=== PATIENT | female | born 1960 | race Caucasian/White ===

== ENCOUNTER 2020-01-16 12:14 | Outpatient (REF) | payer BC, SELFPAY ==
[2020-01-16 21:21] LABS: Calculated LDL 95 mg/dL (<100); Cholesterol 160 mg/dL (<200); HDL Cholesterol 55 mg/dL (40-60); Triglyceride 54 mg/dL (<150)
[2020-01-16 21:23] LABS: Hemoglobin A1C 5.5 % (3.8-5.6)
[2020-01-17 13:22] LABS: ALT 29 U/L (14-59); AST 25 U/L (15-37); Alkaline Phosphatase 105 U/L (46-116); Anion Gap 7.4 mmol/L (3-11); BUN 15 mg/dL (7-18); Bilirubin, Total 0.6 mg/dL (0.2-1.0); CO2 30.6 mmol/L (21.0-32.0); CREATININE 0.77 mg/dL (0.55-1.02); Calcium 8.7 mg/dL (8.5-10.1); Chloride 104 mmol/L (98-107); Glucose 101 mg/dL (74-106); Potassium 3.7 mmol/L (3.5-5.1); Sodium 142 mmol/L (136-145); Total Protein 7.3 g/dL (6.4-8.2)
[2020-01-20 13:18] LABS: Lamotrigine 10.2 mcg/mL (2.5 - 15.0)
== END 2020-01-16 12:34 ==
LOC: NCHCN 12:14
PROVIDERS: PCP Registered Nurse; Visit Provider Registered Nurse
DX: R73.9 Hyperglycemia, unspecified (principal); R56.9 Unspecified convulsions; Z95.2 Presence of prosthetic heart valve; Z00.00 Encounter for general adult medical examination without abnormal findings
CPT/HCPCS: 80053; 80061; 80175; 83036

== ENCOUNTER 2020-03-30 13:39 | Outpatient (REF) | payer BC, SELFPAY | END 2020-03-30 13:59 | LOC: NCHCN 13:39 | PROVIDERS: PCP Registered Nurse; Visit Provider Nurse Practitioner Family | DX: R31.9 Hematuria, unspecified (principal) | CPT/HCPCS: 87077; 87086; 87186 ==

== ENCOUNTER 2021-03-02 11:24 | Outpatient (REF) | payer BC, SELFPAY ==
[2021-03-02 14:32] LABS: BUN 16 mg/dL (7-18); CREATININE 0.4 mg/dL (0.55-1.02); Calcium 8.8 mg/dL (8.5-10.1); Chloride 105 mmol/L (98-107); Glucose 92 mg/dL (74-106); Potassium 3.7 mmol/L (3.5-5.1); Sodium 142 mmol/L (136-145)
== END 2021-03-02 11:25 | disposition home or self-care (01) ==
LOC: NCHCN 11:24
PROVIDERS: PCP Registered Nurse; Visit Provider Registered Nurse
DX: I50.30 Unspecified diastolic (congestive) heart failure (principal)
CPT/HCPCS: 80048

== ENCOUNTER 2021-04-22 13:09 | Outpatient (REF) | payer MEDICAID, SELFPAY ==
[2021-04-22 21:40] LABS: Anion Gap 6.7 mmol/L (3-11); BUN 12 mg/dL (7-18); CO2 32.3 mmol/L (21.0-32.0); CREATININE 0.8 mg/dL (0.55-1.02); Calcium 8.6 mg/dL (8.5-10.1); Chloride 104 mmol/L (98-107); Glucose 133 mg/dL (74-106); Potassium 3.4 mmol/L (3.5-5.1); Sodium 143 mmol/L (136-145)
== END 2021-04-22 13:10 | disposition home or self-care (01) ==
LOC: NCHCN 13:09
PROVIDERS: PCP Registered Nurse; Visit Provider Registered Nurse
DX: E87.6 Hypokalemia (principal)
CPT/HCPCS: 80048

== ENCOUNTER 2021-05-10 08:51 | Outpatient (REF) | payer MEDICAID, SELFPAY ==
--- OUTSIDE RECORDS SUMMARY | 2021-05-10 09:06 | XMS_ITS | CCD ---
:1960 Author Care Team Providers Name Role Phone ANTOINE Attending Physician Unavailable Vital Signs Unknown or Not Available. Allergies Allergy Code Allergy Type Reaction Status LATEX [id number] Allergy to substance Active Procedures Unknown or Not Available. History of Immunizations Unknown or Not Available. Problems Problem Code Start Date Resolved Date Status Decompensated COPD with [id number] Acti ve (acute) exacerbation Pneumonia 538854817 Active Acute respiratory 41130126 Active failure with hypoxia Acute and chronic [id number] Active respiratory failure with hypercapnia Results Unknown or Not Available. Active Medications Medication Code Dose Units Frequency Route Modification Start Date/Time Aspirin 81MG 782892 81 MILLIGRAMS DAILY ORAL 02/20/20 21 Oral Tablet, 16:59 Enteric Coated Prescription Detail TAKE 81 MILLIGRAMS ORAL RADHA Y lamoTRIgine 300748 200 MILLIGRAMS TWICE A ORAL 1 100MG Oral DAY 16:59 Tablet Prescription Detail TAKE 200 MILLIGRAMS ORAL TWI CE A DAY LORazepam 3149339 0.5 MILLIGRAMS NEEDED IVP 1 2MG/1ML EVERY 4 16:59 Injection HOURS Solution Prescription Detail 0.5 MILLIGRAMS IVP NEEDE D EVERY 4 HOURS Ondansetron 811764 4 MILLIGRAMS NEEDED IVP 021 2MG/1ML EVERY 4 16:59 Injection HOURS Solution Prescription Detail 4 MILLIGRAMS IVP NEEDED EVERY 4 HOURS SOLU-Medrol 40mg 246610 40 MILLIGRAMS EVERY 6 IVP 01/28 Vial 40MG/1ML HOURS 16:59 Injection Solution Prescription Detail 40 MILLIGRAMS IVP EVERY 6 H OURS Milk Of Magnesia 828584 30 mL NEEDED ORAL 02/19 400MG/5ML Oral DAILY 16:58 Suspension Prescription Detail TAKE 30 mL ORAL NEEDED DA RUFUS Enoxaparin 833965 40 MILLIGRAMS Q24H SUBCUTANEOUS 02/19 Sodium 16:57 40MG/0.4ML Injection Solution Prescription Detail INJECT 40 MILLIGRAMS SUBCUTA NEOUS Q24H Budesonide 249060 0.5 MILLIGRAMS BID RESP INHALATION 2020 0.5MG/2ML 16:56 Inhalation Suspension Prescription Detail 0.5 MILLIGRAMS INHALATION B ID RESP cefTRIAXone 1GM 1981988 1 GRAM Q24H IVPB 02/20/20 Injection Powder 16:56 for Solution Prescription Detail 1 GRAM IVPB Q24H Azithromycin 500MG 3387505 Q24H IVPB 02/19 16:55 Intravenous Powder for Solution Prescription Detail IVPB Q24H Brovana 059660 15 MICROGRAM BID RESP INHALATION 02/19/2021 15MCG/2ML 16:55 Inhalation Solution Prescription Detail 15 MICROGRAM INHALATION BID RESP Ipratropium 4971822 3 MILLILITERS Q4H INHALATION 02/19 Atkins-Albuterol RESP 16:55 Sulfate 0.5MG/3ML-3MG/3ML Inhalation Solution Prescription Detail 3 MILLILITERS INHALATION Q4 H RESP Tylenol 428445 650 MILLIGRAMS NEEDED ORAL 02/19/2021 325MG Oral EVERY 4 16:53 Tablet HOURS Prescription Detail TAKE 650 MILLIGRAMS ORAL NEEDED EVERY 4 HOURS Medications Administered During Visit Unknown or Not Available. Encounters Encounter Diagnosis Diagnosis Code Start Date Cardiomegaly I517 02/16/2021 Social History Smoking Status Code Start Date End Date Current every day smoker [id number] Patient Decision Aids Unknown or Not Available. Discharge Instructions You were admitted to [facility] on 02/16/2021 15:23 with a principal diagnosis of Cardiomegaly You were discharged from [facility] on 02/16/2021 15:23 Should you have any questions prior to d ischarge, please contact a member of your healthcare team. If you have left the [facility] spital and have any questions, please contact your primary care physician. Chief Complaint and Reason For Visit Unknown or Not Available. Function Status Unknown or Not Available. Plan of Care Unknown or Not Available. Referral/Transition of Care Unknown or Not Available.
--- OUTSIDE RECORDS SUMMARY | 2021-05-10 09:07 | XMS_ITS | CCD ---
:1960 Author Care Team Providers Name Role Phone THOROFARE Attending Physician Unavailable Vital Signs Unknown or Not Available. Allergies Allergy Code Allergy Type Reaction Status No Known Drug Allergies 0 No known drug Act whit[place] allergies LATEX [id number] Allergy to substance Active Procedures Unknown or Not Available. History of Immunizations Unknown or Not Available. Problems Problem Code Start Date Resolved Date Status Decompensated COPD with [id number] Acti ve (acute) exacerbation Pneumonia 226740333 Active Acute respiratory 63263454 Active failure with hypoxia Acute and chronic 8537120060858 Active respiratory failure with hypercapnia Results Unknown or Not Available. Active Medications Medication Code Dose Units Frequency Route Modification Start Date/Time Aspirin 81MG 039770 81 MILLIGRAMS DAILY ORAL 02/20/20 21 Oral Tablet, 16:59 Enteric Coated Prescription Detail TAKE 81 MILLIGRAMS ORAL RADHA Y lamoTRIgine 277885 200 MILLIGRAMS TWICE A ORAL 1 100MG Oral DAY 16:59 Tablet Prescription Detail TAKE 200 MILLIGRAMS ORAL TWI CE A DAY LORazepam 2067573 0.5 MILLIGRAMS NEEDED IVP 1 2MG/1ML EVERY 4 16:59 Injection HOURS Solution Prescription Detail 0.5 MILLIGRAMS IVP NEEDE D EVERY 4 HOURS Ondansetron 881344 4 MILLIGRAMS NEEDED IVP 021 2MG/1ML EVERY 4 16:59 Injection HOURS Solution Prescription Detail 4 MILLIGRAMS IVP NEEDED EVERY 4 HOURS SOLU-Medrol 40mg 275575 40 MILLIGRAMS EVERY 6 IVP 01/28 Vial 40MG/1ML HOURS 16:59 Injection Solution Prescription Detail 40 MILLIGRAMS IVP EVERY 6 H OURS Milk Of Magnesia 302324 30 mL NEEDED ORAL 02/19 400MG/5ML Oral DAILY 16:58 Suspension Prescription Detail TAKE 30 mL ORAL NEEDED DA RUFUS Enoxaparin 507581 40 MILLIGRAMS Q24H SUBCUTANEOUS 02/19 Sodium 16:57 40MG/0.4ML Injection Solution Prescription Detail INJECT 40 MILLIGRAMS SUBCUTA NEOUS Q24H Budesonide 175937 0.5 MILLIGRAMS BID RESP INHALATION 2020 0.5MG/2ML 16:56 Inhalation Suspension Prescription Detail 0.5 MILLIGRAMS INHALATION B ID RESP cefTRIAXone 1GM 6894026 1 GRAM Q24H IVPB 02/20/20 Injection Powder 16:56 for Solution Prescription Detail 1 GRAM IVPB Q24H Azithromycin 500MG 4501867 Q24H IVPB 02/19 16:55 Intravenous Powder for Solution Prescription Detail IVPB Q24H Brovana 773351 15 MICROGRAM BID RESP INHALATION 02/19/2021 15MCG/2ML 16:55 Inhalation Solution Prescription Detail 15 MICROGRAM INHALATION BID RESP Ipratropium 8768850 3 MILLILITERS Q4H INHALATION 02/19 [place]-Albuterol RESP 16:55 Sulfate 0.5MG/3ML-3MG/3ML Inhalation Solution Prescription Detail 3 MILLILITERS INHALATION Q4 H RESP Tylenol 039657 650 MILLIGRAMS NEEDED ORAL 02/19/2021 325MG Oral EVERY 4 16:53 Tablet HOURS Prescription Detail TAKE 650 MILLIGRAMS ORAL NEEDED EVERY 4 HOURS Medications Administered During Visit Unknown or Not Available. Encounters Encounter Diagnosis Diagnosis Code Start Date Encounter for screening mammogram for malignant Z1231 03/25/2021 neoplasm of breast Social History Smoking Status Code Start Date End Date Current every day smoker 141831637 Patient Decision Aids Unknown or Not Available. Discharge Instructions You were admitted to [facility] on 03/25/2021 14:13 with a principal diagnosis of Encounter for screening marycruz mogram for malignant neoplasm of breast You were discharged from [facility] on 03/25/2021 14:13 Should you have any questions prior to [...]
--- OUTSIDE RECORDS SUMMARY | 2021-05-10 09:07 | XMS_ITS | CCD ---
:1960 Author Care Team Providers Name Role Phone GUALALA Attending Physician Unavailable Vital Signs Unknown or Not Available. Allergies Allergy Code Allergy Type Reaction Status No Known Drug Allergies 0 No known drug Act whit[place] allergies LATEX 4586678 Allergy to substance Active Procedures Unknown or Not Available. History of Immunizations Unknown or Not Available. Problems Problem Code Start Date Resolved Date Status Decompensated COPD with 166048842 Acti ve (acute) exacerbation Pneumonia 892619095 Active Acute respiratory 08129898 Active failure with hypoxia Acute and chronic 0584691417971 Active respiratory failure with hypercapnia Results Unknown or Not Available. Active Medications Medication Code Dose Units Frequency Route Modification Start Date/Time Aspirin 81MG 530649 81 MILLIGRAMS DAILY ORAL 02/20/20 21 Oral Tablet, 16:59 Enteric Coated Prescription Detail TAKE 81 MILLIGRAMS ORAL RADHA Y lamoTRIgine 814281 200 MILLIGRAMS TWICE A ORAL 1 100MG Oral DAY 16:59 Tablet Prescription Detail TAKE 200 MILLIGRAMS ORAL TWI CE A DAY LORazepam 2848910 0.5 MILLIGRAMS NEEDED IVP 1 2MG/1ML EVERY 4 16:59 Injection HOURS Solution Prescription Detail 0.5 MILLIGRAMS IVP NEEDE D EVERY 4 HOURS Ondansetron 674165 4 MILLIGRAMS NEEDED IVP 021 2MG/1ML EVERY 4 16:59 Injection HOURS Solution Prescription Detail 4 MILLIGRAMS IVP NEEDED EVERY 4 HOURS SOLU-Medrol 40mg 277422 40 MILLIGRAMS EVERY 6 IVP 01/28 Vial 40MG/1ML HOURS 16:59 Injection Solution Prescription Detail 40 MILLIGRAMS IVP EVERY 6 H OURS Milk Of Magnesia 696264 30 mL NEEDED ORAL 02/19 400MG/5ML Oral DAILY 16:58 Suspension Prescription Detail TAKE 30 mL ORAL NEEDED DA RUFUS Enoxaparin 343656 40 MILLIGRAMS Q24H SUBCUTANEOUS 02/19 Sodium 16:57 40MG/0.4ML Injection Solution Prescription Detail INJECT 40 MILLIGRAMS SUBCUTA NEOUS Q24H Budesonide 115989 0.5 MILLIGRAMS BID RESP INHALATION 2020 0.5MG/2ML 16:56 Inhalation Suspension Prescription Detail 0.5 MILLIGRAMS INHALATION B ID RESP cefTRIAXone 1GM 3210608 1 GRAM Q24H IVPB 02/20/20 Injection Powder 16:56 for Solution Prescription Detail 1 GRAM IVPB Q24H Azithromycin 500MG 2174584 Q24H IVPB 02/19 16:55 Intravenous Powder for Solution Prescription Detail IVPB Q24H Brovana 737288 15 MICROGRAM BID RESP INHALATION 02/19/2021 15MCG/2ML 16:55 Inhalation Solution Prescription Detail 15 MICROGRAM INHALATION BID RESP Ipratropium 1352149 3 MILLILITERS Q4H INHALATION 02/19 [place]-Albuterol RESP 16:55 Sulfate 0.5MG/3ML-3MG/3ML Inhalation Solution Prescription Detail 3 MILLILITERS INHALATION Q4 H RESP Tylenol 839768 650 MILLIGRAMS NEEDED ORAL 02/19/2021 325MG Oral EVERY 4 16:53 Tablet HOURS Prescription Detail TAKE 650 MILLIGRAMS ORAL NEEDED EVERY 4 HOURS Medications Administered During Visit Unknown or Not Available. Encounters Unknown or Not Available. Social History Smoking Status Code Start Date End Date Current every day smoker 430607187 Patient Decision Aids Unknown or Not Available. Discharge Instructions You were admitted to [facility] on 04/07/2021 12:41 You were discharged from [facility] on 04/07/2021 12:41 Should you have any questions prior to [...]
[2021-05-10 15:03] LABS: Hemoglobin A1C 5.8 % (<5.7)
[2021-05-10 15:04] LABS: Anion Gap 8.5 mmol/L (3-11); BUN 11 mg/dL (7-18); CO2 31.5 mmol/L (21.0-32.0); CREATININE 0.8 mg/dL (0.55-1.02); Calcium 9.1 mg/dL (8.5-10.1); Calculated LDL 124 mg/dL (<100); Chloride 101 mmol/L (98-107); Cholesterol 202 mg/dL (<200); Glucose 101 mg/dL (74-106); HDL Cholesterol 59 mg/dL (40-60); Potassium 3.8 mmol/L (3.5-5.1); Sodium 141 mmol/L (136-145); Triglyceride 98 mg/dL (<150)
== END 2021-05-10 08:52 | disposition home or self-care (01) ==
LOC: LBN 08:51
PROVIDERS: PCP Registered Nurse; Visit Provider Registered Nurse
DX: I10 Essential (primary) hypertension (principal); Z13.220 Encounter for screening for lipoid disorders; Z13.1 Encounter for screening for diabetes mellitus; R73.9 Hyperglycemia, unspecified; Z00.00 Encounter for general adult medical examination without abnormal findings
CPT/HCPCS: 80048; 80061; 83036

== ENCOUNTER 2022-12-27 15:18 | Outpatient (REF) | payer MEDICAID, SELFPAY ==
[2022-12-27 15:21] LABS: Abs Immature Grans 0.02 10^3/uL (0.0-0.06); Absolute Basophil Count 0.05 10^3/uL (0.0-0.2); Absolute Eosinophil Count 0.14 10^3/uL (0.0-0.7); Absolute Lymphocyte Count 0.71 10^3/uL (1.2-3.4); Absolute Monocyte Count 0.46 10^3/uL (0.1-0.8); Absolute Neutrophil Count 4.56 10^3/uL (1.2-6.7); Basophils % 0.8; Eosinophils % 2.4; HCT 51.3 % (36.0-46.0); HGB 16.7 g/dL (11.2-15.7); Immature Grans % 0.3; MCH 33.5 pg (27.0-33.0); MCHC 32.6 % (32.0-36.0); MCV 103 fL (80-95); MPV 12.2 fL (8.0-11.0); Monocytes % 7.7; Neutrophils % 76.8; Platelet Count 118 10^3/uL (130-400); RBC 4.99 10^6/uL (3.93-5.22); RDW 13.2 % (11.7-14.6); RDW-SD 50.5 fL; WBC 5.94 10^3/uL (4.4-10.8)
[2022-12-27 15:43] LABS: Hemoglobin A1C 5.6 % (<5.7)
[2022-12-27 15:57] LABS: ALT 24 U/L (14-59); AST 21 U/L (15-37); Albumin 3.9 g/dL (3.4-5.0); Alkaline Phosphatase 126 U/L (46-116); Anion Gap 4.5 mmol/L (3-11); BUN 13 mg/dL (7-18); Bilirubin, Total 0.6 mg/dL (0.2-1.0); CO2 32.5 mmol/L (21.0-32.0); CREATININE 0.7 mg/dL (0.55-1.02); Chloride 103 mmol/L (98-107); Estimated GFR 96.52 (mL/min/1.73m2); Glucose 125 mg/dL (74-106); NT-proBNP 265 pg/mL (<300); Potassium 4.2 mmol/L (3.5-5.1); Sodium 140 mmol/L (136-145); Total Protein 8.2 g/dL (6.4-8.2)
== END 2022-12-27 15:19 | disposition home or self-care (01) ==
LOC: NCHCN 15:18
PROVIDERS: PCP Registered Nurse; Visit Provider Registered Nurse
DX: I10 Essential (primary) hypertension (principal); R73.03 Prediabetes; R06.02 Shortness of breath; I50.30 Unspecified diastolic (congestive) heart failure; Z95.2 Presence of prosthetic heart valve; J44.9 Chronic obstructive pulmonary disease, unspecified; Z85.118 Personal history of other malignant neoplasm of bronchus and lung
CPT/HCPCS: 80053; 83036; 83880; 85025

== ENCOUNTER 2023-12-04 12:46 | Outpatient (REF) | payer MEDICARE, OTHER, SELFPAY ==
[2023-12-04 15:13] LABS: ALT 24 U/L (14-59); AST 18 U/L (15-37); Albumin 3.3 g/dL (3.4-5.0); Alkaline Phosphatase 107 U/L (46-116); Anion Gap 4.5 mmol/L (3-11); BUN 20 mg/dL (7-18); Bilirubin, Total 0.3 mg/dL (0.2-1.0); CO2 35.5 mmol/L (21.0-32.0); CREATININE 0.7 mg/dL (0.55-1.02); Calcium 8.7 mg/dL (8.5-10.1); Chloride 103 mmol/L (98-107); Estimated GFR 95.92 (mL/min/1.73m2); Glucose 107 mg/dL (74-106); NT-proBNP 306 pg/mL (<300); Potassium 3.6 mmol/L (3.5-5.1); Sodium 143 mmol/L (136-145); Total Protein 7.8 g/dL (6.4-8.2)
== END 2023-12-04 12:47 | disposition home or self-care (01) ==
LOC: NCHCN 12:46
PROVIDERS: PCP Registered Nurse; Visit Provider Family Medicine
DX: I50.30 Unspecified diastolic (congestive) heart failure (principal); R60.0 Localized edema
CPT/HCPCS: 80053; 83880

== ENCOUNTER 2024-04-28 14:22 | Outpatient (REF) | payer MEDICARE, OTHER, SELFPAY ==
[2024-04-28 14:45] LABS: Abs Immature Grans 0.02 10^3/uL (0.0-0.06); Absolute Basophil Count 0.02 10^3/uL (0.0-0.2); Absolute Eosinophil Count 0.06 10^3/uL (0.0-0.7); Absolute Lymphocyte Count 1.16 10^3/uL (1.2-3.4); Absolute Monocyte Count 0.43 10^3/uL (0.1-0.8); Absolute Neutrophil Count 5.41 10^3/uL (1.2-6.7); Basophils % 0.3 %; Eosinophils % 0.8 %; HCT 48.1 % (36.0-46.0); HGB 15.6 g/dL (11.2-15.7); Immature Grans % 0.3 %; Lymphocytes % 16.3 %; MCH 33.4 pg (27.0-33.0); MCHC 32.4 % (32.0-36.0); MCV 103 fL (80-95); MPV 12.2 fL (8.0-11.0); Monocytes % 6.1 %; Neutrophils % 76.2 %; Platelet Count 132 10^3/uL (130-400); RBC 4.67 10^6/uL (3.93-5.22); RDW 12.9 % (11.7-14.6); RDW-SD 48.7 fL
[2024-04-28 15:05] LABS: ALT 17 U/L (14-59); AST 29 U/L (15-37); Albumin 3.8 g/dL (3.4-5.0); Alkaline Phosphatase 111 U/L (46-116); BUN 13 mg/dL (7-18); Bilirubin, Total 0.96 mg/dL (0.2-1.0); CREATININE 0.7 mg/dL (0.55-1.02); Calcium 9.4 mg/dL (8.5-10.1); Chloride 97 mmol/L (98-107); Estimated GFR 95.32 (mL/min/1.73m2); Glucose 99 mg/dL (74-106); NT-proBNP 535 pg/mL (<300); Potassium 3.7 mmol/L (3.5-5.1); Sodium 138 mmol/L (136-145); Total Protein 8.5 g/dL (6.4-8.2)
== END 2024-04-28 14:23 | disposition home or self-care (01) ==
LOC: NCHCN 14:22
PROVIDERS: PCP Registered Nurse; Visit Provider Nurse Practitioner Family
DX: R06.00 Dyspnea, unspecified (principal)
CPT/HCPCS: 80053; 83880; 85025